=== PATIENT | female | born 1980 | race Caucasian/White ===

== ENCOUNTER 2019-09-29 20:26 | Emergency (ER) | payer OTHER, SELFPAY ==
--- NOTE | ~2019-09-29 | XR_ITS ---
[XR ribs LT 2V w CXR 2V ] INDICATION: Left lateral rib pain after fall TECHNIQUE: Frontal projection of the upper left ribs, frontal projection of the lower left ribs, obli que projection of all the left ribs, frontal inspiratory chest x-ray for interpretation. FINDINGS: There are no displaced rib fractures identified. There are no soft tissue abnormality see n. The lungs are clear. IMPRESSION: 1:No displaced rib fractures. Reviewed, dictated and finalized at location A.
[2019-09-29 20:29] VITALS: BP 140/100; PULSE 108; RESP 18; TEMP 36.2; O2SAT 100
[2019-09-29 20:41] VITALS: RESP 20; O2SAT 99
--- NOTE | 2019-09-29 21:11 | ED.FALL ---
HPI - Fall General Chief Complaint: Fall Stated Complaint: fall, left lower rib pain Time Seen by Provider: 09/29/19 20:40 Source: patient and family Mode of arrival: ambulatory History of Present Illness HPI Narrative: 38 years old white female tripped on her dog and landed on the edge of a countertop complaining of left lower ribs pain, 4 days ago. Patient denies other injuries. Patient reports intermittent sharp stabbing pain at that area. Patient denies any shortness of breath, lightheadedness or dizziness. MD complaint: fall Related Data Home Medications Medication Instructions Recorded Confirmed citalopram mg 09/29/19 ergocalciferol (vitamin D2) 09/29/19 phentermine mg 09/29/19 semaglutide [Ozempic] mg SUBCUT 09/29/19 Allergies Allergy/AdvReac Type Severity Reaction Status Date / Time hydrocodone Allergy Unknown HIVES Verified 09/29/19 20:33 Review of Systems Review of Systems: Narrative: CONSTITUTIONAL: Denies fever, chills, or sweats. EYES: Denies visual changes, redness, or discharge. ENT: Denies rhinorrhea, congestion, sore throat, or otalgia. CARDIOVASCULAR: Denies chest pain, palpitations, or edema. RESPIRATORY: Denies cough or dyspnea. GASTROINTESTINAL: Denies abdominal pain, nausea, vomiting, or diarrhea. GENITOURINARY: Denies dysuria or hematuria. SKIN: Denies rash or itching. MUSCULOSKELETAL: Denies back pain, joint pain, or myalgia. NEUROLOGIC: Denies headache, numbness, or weakness. PSYCHIATRIC: Denies anxiety or depression. Exam Narrative: Exam Narrative: General appearance: Well-developed, well-nourished Skin: Normal color, no bruises or signs of injury at the left lower ribs Head: Normocephalic, nontraumatic Eyes: Clear conjunctiva ENT: Oropharynx normal, ears normal, nose normal Neck: Supple, nontender Chest and respiratory: Airway patent, no respiratory distress, no accessory muscle use Heart: Regular rate/rhythm Abdomen: Soft, nontender, no organomegaly, quiet bowel sounds Vascular: Normal peripheral pulses, normal capillary refill. Musculoskeletal: Normal range of motion, nontender back Neurologic: Alert and oriented ?3, PAPERHANGER is normal as tested, no gross motor deficit Course Course Emergency Course: Stable Vital Signs Vital signs: Vital Signs Temperature 36.2 C L 09/29/19 20:29 Pulse Rate 108 H 09/29/19 20:29 Respiratory Rate 18 09/29/19 20:29 Blood Pressure 140/100 H 09/29/19 20:29 Pulse Oximetry 100 09/29/19 20:29 Temperature 36.2 C L 09/29/19 20:29 Pulse Rate 108 H 09/29/19 20:29 Respiratory Rate 20 09/29/19 20:41 Blood Pressure 140/100 H 09/29/19 20:29 Pulse Oximetry 99 09/29/19 20:41 MDM - Fall MDM Narrative Medical decision making narrative: Left lower rib fracture is my concern. Left rib x-ray ordered. Further plan to follow Critical Care Time Critical Care Time Critical Care Time: No Discharge Plan Discharge Clinical Impression: Chest wall contusion Qualifiers: Encounter type: sequela Laterality: left Qualified Code(s): S20.212S - Contusion of left front wall of thorax, sequela Patient Disposition: Home, Self-Care Condition: Stable Instructions: Contusion in Adults (ED) Additional Instructions: Return if symptoms are worsening , call your family physician for appointment, take Tylenol as as needed for aches and pain, continue home medications. Prescriptions: No Action citalopram 40 mg tablet RF: 0 ergocalciferol (vitamin D2) 1,250 mcg (50,000 unit) capsule RF: 0 Ozempic 0.25 mg or 0.5 mg(2 mg/1.5 mL) pen injector SUBCUT RF: 0 phentermine 37.5 mg capsule RF: 0 Follow-up/Referrals: [facility]
[2019-09-29 22:03] VITALS: BP 137/89; PULSE 91; RESP 20; TEMP 36.6; O2SAT 100
== END 2019-09-29 22:05 | disposition home or self-care (01) ==
PROVIDERS: Emergency Provider Emergency Medicine; PCP Internal Medicine
DX: S20.212A Contusion of left front wall of thorax, initial encounter (principal); W01.0XXA Fall on same level from slipping, tripping and stumbling without subsequent striking against object, initial encounter
CPT/HCPCS: 71046; 71100; 99283

== ENCOUNTER 2020-07-10 22:59 | Emergency (ER) | payer OTHER, SELFPAY ==
--- NOTE | ~2020-07-10 | XR_ITS ---
EXAMINATION: XR chest 2V EXAM DATE: 07/10/2020 23:47 INDICATION: Chest pain mid sternal x 1 day, vomiting and felt a pop . TECHNIQUE: Frontal and lateral projections of the chest obtained and reviewed. There is no prior ralph dy for comparison. FINDINGS: The lungs are clear. There are no pleural effusions. The cardiomediastinal silhouette is within normal limits. There is no pneumothorax suspected. The bones and soft tissues are unremarkab le. There is no significant interval change. IMPRESSION: No acute cardiopulmonary findings. Reviewed, dictated and finalized at location G.
[2020-07-10 23:03] VITALS: BP 139/94; PULSE 102; RESP 18; TEMP 36.1; O2SAT 100
--- NOTE | 2020-07-10 23:16 | ECG_ITS ---
Measurements Intervals [place] Rate: 93 P: 62 SD: 152 QRS: -32 QRSD: 97 T: 29 QT: 368 QTc: 459 Interpretive Statements SINUS RHYTHM WITH SINUS ARRHYTHMIA POSSIBLE LEFT ATRIAL ENLARGEMENT LEFT AXIS DEVIATION INCOMPLETE RIGHT BUNDLE BRANCH BLOCK POOR R WAVE PROGRESSION, ANTERIOR LEADS BASELINE ARTIFACT- I, II, III, AVR, AVL, AVF, V5 BORDERLINE ECG Electronically Signed On 07-11-2020 7:04:39 CDT by Giovanni Alvarado D.O.
--- NOTE | 2020-07-10 23:16 | ED.CHESTPAIN ---
HPI - Chest Pain General Chief Complaint: Chest Pain Stated Complaint: Chest discomfort Time Seen by Provider: 07/10/20 23:15 Source: patient Mode of arrival: ambulatory Limitations: no limitations History of Present Illness HPI narrative: Patient is a 39-year-old female who presents for evaluation of vomiting with a small amount of streaking blood present in the emesis. Patient states she had had a migraine headache and was heavily vomiting today when she felt a pop in her chest and then experienced some streaky bleeding in her emesis. No large blood clots. No current or repeated emesis. Only mild nausea persists. Headache resolved with Excedrin. No vision changes. No numbness or weakness. She denies abdominal pain. Patient has a history of migraine headache, states the migraine was typical for her. Currently resolved. 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 She denies any pleuritic chest pain or shortness of breath. She also reports she recently had a rectocele repair and bladder sling placed for bladder and uterine prolapse by Dr. Cobb, OBGYN. Patient states that she had her bladder nicked with the scalpel. Patient reports some frequency, hematuria without dysuria. Related Data Home Medications Medication Instructions Recorded Confirmed citalopram 40 mg PO DAILY 09/29/19 ergocalciferol (vitamin D2) 1,250 mcg PO DAILY 09/29/19 phentermine 37.5 mg PO DAILY 09/29/19 semaglutide [Ozempic] 0.25 mg SUBCUT WEEKLY 09/29/19 Allergies Allergy/AdvReac Type Severity Reaction Status Date / Time hydrocodone Allergy Unknown HIVES Verified 07/11/20 00:26 Review of Systems Review of Systems: Narrative: CONSTITUTIONAL: Denies fever, chills, or sweats. EYES: Denies visual changes, redness, or discharge. ENT: Denies rhinorrhea, congestion, sore throat, or otalgia. CARDIOVASCULAR: Reports chest pain without palpitations or edema RESPIRATORY: Denies cough or dyspnea. GASTROINTESTINAL: Denies abdominal pain, reports nausea with blood streaking and emesis GENITOURINARY: Denies dysuria, reports hematuria SKIN: Denies rash or itching. MUSCULOSKELETAL: Denies back pain, joint pain, or myalgia. NEUROLOGIC: Denies headache, numbness, or weakness. [facility] Social History Social History (Updated 07/10/20 @ 23:41 by Elyssa Zamudio MD) Smoking status: Never smoker Alcohol intake: never Substance use: never Living arrangements: with family Gender identity (if verbalized by the patient): Female Exam Narrative: Exam Narrative: GENERAL: Awake, alert, conversant HEAD: Normocephalic, atraumatic. EYES: 2+ PERRLA and EOMI. ENT: Nares clear, no rhinorrhea or epistaxis. Mucous membranes moist. NECK: Supple. CHEST: No respiratory distress, breathing even and non labored no crepitus or ecchymosis, mild left chest wall tenderness which reproduces pain, lungs are clear to auscultation bilaterally HEART: Tachycardic rate, sinus rhythm ABDOMEN:Non distended, non tender EXTREMITIES: Normal range of motion. No edema. SKIN: Warm, dry, no rash. NEURO:No focal deficits. Alert and oriented x3 Course Vital Signs Vital signs: Vital Signs Temperature 36.1 C L 07/10/20 23:03 Pulse Rate 102 H 07/10/20 23:03 Respiratory Rate 18 07/10/20 23:03 Blood Pressure 139/94 H 07/10/20 23:03 Pulse Oximetry 100 07/10/20 23:03 Temperature 36.1 C L 07/10/20 23:03 Pulse Rate 91 07/11/20 00:30 Respiratory Rate 20 07/11/20 00:30 Blood Pressure 133/85 07/11/20 00:30 Pulse Oximetry 100 07/11/20 00:30 MDM - Chest Pain MDM Narrative Medical decision making narrative: Patient presented for evaluation of blood-streaked emesis. At the time of assessment, patient is not nauseated, denies any chest pain or shortness of breath. Physical exam is reassuring. Laboratory results show mild leukocytosis, mild transaminitis without other concerning changes. Patient is taking Tylenol since her
[2020-07-10 23:34] LABS: Basophils Absolute Auto 0.1 K/mm3 (0.0-0.1); Basophils Percent Auto 0.5 % (0.2-1.2); Eosinophils Absolute Auto 0.2 K/mm3 (0-0.3); Eosinophils Percent Auto 1.7 % (0-4.4); Hematocrit 46.8 % (37.0-47.0); Hemoglobin 15.9 g/dL (12.0-15.0); Immature Granulocyte Absolute 0.04 K/mm3 (0.00-0.031); Immature Granulocyte Percent A 0.3 % (0-0.5); Lymphocytes Absolute Auto 3.27 K/mm3 (0.9-3.2); Lymphocytes Percent Auto 22.8 % (18.3-44.2); Mean Corpuscular Hemoglobin 33.5 pg (26-34); Mean Corpuscular Volume 98.7 fl (80-100); Mean Platelet Volume 8.8 fl (7.4-10.4); Monocytes Absolute Auto 0.8 K/mm3 (0.1-0.6); Monocytes Percent Auto 5.6 % (2.6-8.5); Neutrophils Absolute Auto 9.9 K/mm3 (1.3-6.7); Neutrophils Percent Auto 69.1 % (45.5-73.1); Platelet Count Result 405 k/mm3 (150-375); Red Blood Count 4.74 M/mm3 (4.2-5.4); Red Cell Distribution Width 12.2 % (11.5-14.5); White Blood Count 14.4 K/mm3 (4.5-10.0)
[2020-07-10 23:43] LABS: Alanine Aminotransferase 67 U/L (4-35); Albumin Level 4.9 g/dL (3.5-5.1); Alkaline Phosphatase 93 U/L (38-126); Anion Gap 8 mmol/L (8-16); Aspartate Amino Transferase 61 U/L (14-36); Bilirubin,Total 1.2 mg/dL (0.2-1.3); Blood Urea Nitrogen 11 mg/dL (7-17); Calcium 10.2 mg/dL (8.4-10.2); Carbon Dioxide 30 mmol/L (22-30); Chloride 100 mmol/L (98-107); Estimated CRCL calculation 91 ml/min; Estimated Glomerular Filt Rate > 60; Glucose 101 mg/dL (65-105); Sodium 138 mmol/L (137-145)
[2020-07-10 23:49] LABS: Lipase 60 U/L (23-300)
[2020-07-10 23:55] LABS: Troponin I < 0.012 ng/mL (0.000-0.034)
[2020-07-10] MEDS: SODIUM CHLORIDE 0.9% IV 1,000 ML 999 ML IV CONT (23:55)
[2020-07-10] MEDS: ONDANSETRON INJ 4 MG/2 ML VIAL IV PUSH (23:56)
[2020-07-10] MEDS: ASPIRIN 81 MG CHEWABLE TABLET 324 MG PO (23:56)
[2020-07-11 00:18] LABS: INR 0.9
[2020-07-11 00:19] LABS: Partial Thromboplastin Time 29.9 SECONDS (22.3-36.8)
[2020-07-11 00:30] VITALS: BP 133/85; PULSE 91; RESP 20; O2SAT 100
[2020-07-11 01:46] VITALS: BP 132/83; PULSE 89; RESP 18; O2SAT 98
--- NOTE | 2020-07-22 19:18 | PC.NURSE ---
LATE ENTRY This note is being entered to document information to the patient's record. The following information was omitted on [], by iv stop @ [id number] [].
== END 2020-07-11 01:49 | disposition home or self-care (01) ==
PROVIDERS: Emergency Provider Emergency Medicine; PCP Internal Medicine
DX: R11.11 Vomiting without nausea (principal); R74.01 Elevation of levels of liver transaminase levels; K76.0 Fatty (change of) liver, not elsewhere classified
CPT/HCPCS: 36415; 71046; 80053; 83690; 84484; 85025; 85610; 85730; 93005; 96361; 96374; 99284; A9270; J2405; J7030

== ENCOUNTER 2020-10-12 20:31 | Emergency (ER) | payer OTHER, SELFPAY ==
--- NOTE | ~2020-10-12 | XR_ITS ---
EXAMINATION: XR toe 1st LT min 2V DATE: 10/12/2020 23:39 INDICATION: Left great toe injury TECHNIQUE: Dorsal plantar, lateral and oblique views of the left great toe were obtained. COMPARISON: None FINDINGS: Alignment is normal. No fracture. Joint spaces are normal. Soft tissues are unremarkable. IMPRESSION: Negative left great toe radiographs. Reviewed, dictated and finalized at location A.
[2020-10-12 21:00] VITALS: BP 146/84; PULSE 114; RESP 18; TEMP 36.4; O2SAT 100
[2020-10-12] MEDS: TETANUS,DIPHTHERIA,AC PERTUSSIS ADULT (0.5 ML) BOOSTRIX IM (23:38)
--- NOTE | 2020-10-12 23:58 | ED.WOUNDLAC ---
HPI - Wound/Laceration General Chief Complaint: Wound/Laceration Stated Complaint: rock in left great toe Time Seen by Provider: 10/12/20 22:23 Source: patient and RN notes reviewed Mode of arrival: ambulatory Limitations: no limitations History of Present Illness HPI narrative: Patient tripped while walking on concrete, injured the tip of the left toe. Patient denies other injuries. Unknown tetanus, fully vaccinated Related Data Home Medications Medication Instructions Recorded Confirmed citalopram 40 mg PO DAILY 09/29/19 ergocalciferol (vitamin D2) 1,250 mcg PO DAILY 09/29/19 phentermine 37.5 mg PO DAILY 09/29/19 semaglutide [Ozempic] 0.25 mg SUBCUT WEEKLY 09/29/19 Allergies Allergy/AdvReac Type Severity Reaction Status Date / Time hydrocodone Allergy Unknown HIVES Verified 10/12/20 22:37 Review of Systems Review of Systems: CONSTITUTIONAL: Denies fever, chills, or sweats. EYES: Denies visual changes, redness, or discharge. ENT: Denies rhinorrhea, congestion, sore throat, or otalgia. CARDIOVASCULAR: Denies chest pain, palpitations, or edema. RESPIRATORY: Denies cough or dyspnea. GASTROINTESTINAL: Denies abdominal pain, nausea, vomiting, or diarrhea. GENITOURINARY: Denies dysuria or hematuria. SKIN: Denies rash or itching. MUSCULOSKELETAL: Denies back pain, joint pain, or myalgia. NEUROLOGIC: Denies headache, numbness, or weakness. PSYCHIATRIC: Denies anxiety or depression. [facility] Social History Social History Smoking status: Never smoker Alcohol intake: never Substance use: never Gender identity (if verbalized by the patient): Female Exam Narrative: General appearance: Well-developed, well-nourished Skin: Normal color, left leg showed 4 m laceration very superficial Head: Normocephalic, nontraumatic Neck: Supple, nontender Chest and respiratory: Airway patent, no respiratory distress, no accessory muscle use Heart: Regular rate/rhythm Abdomen: Soft, nontender, no organomegaly, quiet bowel sounds Vascular: Normal peripheral pulses, normal capillary refill. Musculoskeletal: Normal range of motion, nontender back Neurologic: Alert and oriented ?3, HOPPER FEEDER is normal as tested, no gross motor deficit Course Course Emergency Course: Stable Vital Signs Vital signs: Vital Signs Temperature 36.4 C L 10/12/20 21:00 Pulse Rate 114 H 10/12/20 21:00 Respiratory Rate 18 10/12/20 21:00 Blood Pressure 146/84 H 10/12/20 21:00 Pulse Oximetry 100 10/12/20 21:00 Temperature 36.4 C L 10/12/20 21:00 Pulse Rate 114 H 10/12/20 21:00 Respiratory Rate 18 10/12/20 21:00 Blood Pressure 146/84 H 10/12/20 21:00 Pulse Oximetry 100 10/12/20 21:00 Procedures Laceration Laceration 1: Date: 10/13/20 Time: 00:05 Site: other (Left big toe) Side (If applicable): left Size (cm): 0.4 Description: flap Depth: simple, single layer Pre-repair: wound explored and other (Betadine bath) ====== Skin Level ====== Skin layer closed with: steri strips ====== Subcutaneous Layer ====== ====== Muscle Layer ====== ====== Tendon Layer ====== MDM - Wound/Laceration MDM Narrative Medical decision making narrative: X-ray left big toe, tetanus shot Differential Diagnosis Differential diagnosis: Likely laceration Imaging Data Radiologist's impression: Impressions Toe X-Ray 10/12/20 23:58 IMPRESSION: Negative left great toe radiographs. Critical Care Time Critical Care Time Critical Care Time: No Discharge Plan Discharge Clinical Impression: Laceration
[2020-10-13 00:34] VITALS: BP 138/78; PULSE 98; RESP 18; O2SAT 100
== END 2020-10-13 00:35 | disposition home or self-care (01) ==
PROVIDERS: Emergency Provider Emergency Medicine; PCP Internal Medicine
DX: S91.112A Laceration without foreign body of left great toe without damage to nail, initial encounter (principal); Z23 Encounter for immunization; W18.40XA Slipping, tripping and stumbling without falling, unspecified, initial encounter
CPT/HCPCS: 73660; 90471; 90715; 99283